=== PATIENT | female | born 1980 | race Caucasian/White ===

== ENCOUNTER 2022-08-10 13:33 | Outpatient (CLI) | payer BC, SELFPAY ==
--- NOTE | ~2022-08-10 | MM_ITS ---
EXAMINATION: MM screening beatris BI w angela HISTORY: Screening mammogram TECHNIQUE: Craniocaudal and mediolateral oblique 3-D tomosynthesis images were obtained and synthetic 2-D images were generated. Bilateral rotated lateral CC views. CAD analysis was submitted and interp reted. COMPARISON: 07/31/2007 bilateral diagnostic mammogram BREAST PARENCHYMAL COMPOSITION: The breasts are heterogeneously dense, which may obscure small masses . FINDINGS: There is no evidence of suspicious mass, calcification, or architectural distortion to sugg est malignancy in either breast. There has been no suspicious interval change. IMPRESSION: 1. No mammographic evidence of malignancy. 2. Recommend routine screening mammography in one year. BI-RADS Category 1: Negative Reviewed, dictated and finalized at location A. OS
== END 2022-08-10 13:34 | disposition home or self-care (01) ==
PROVIDERS: PCP Internal Medicine; Visit Provider Obstetrics & Gynecology
DX: Z12.31 Encounter for screening mammogram for malignant neoplasm of breast (principal)
CPT/HCPCS: 77063; 77067

== ENCOUNTER → 2023-03-05 11:03 | Outpatient (CLI) | payer BC, SELFPAY ==
--- NOTE | ~2023-03-05 | XR_ITS ---
EXAMINATION: XR chest 2V DATE: 03/05/2023 12:07 INDICATION: Acute cough TECHNIQUE: frontal and lateral views of the chest were obtained. COMPARISON: None FINDINGS: Subtle retrocardiac opacities at the medial left lung base with no focal airspace opacities but with suggestion of some bronchial wall thickening in the infrahilar region on the lateral projection. No p leural effusion or pneumothorax. Size is normal. Moderate mid thoracic spondylosis. IMPRESSION: 1. Subtle opacities with suggestion of bronchial wall thickening in the infrahilar left lower lobe wh ich could represent bronchitis or early pneumonia. Reviewed, dictated and finalized at location B. IMPRESSION: 1. Subtle opacities with suggestion of bronchial wall thickening in the infrahi lar left lower lobe which could represent bronchitis or early pneumonia.
== END ==
PROVIDERS: PCP Internal Medicine; Visit Provider Nurse Practitioner
DX: R05.1 Acute cough (principal); R91.8 Other nonspecific abnormal finding of lung field
CPT/HCPCS: 71046

== ENCOUNTER 2023-09-25 16:07 | Outpatient (CLI) | payer BC, SELFPAY ==
--- NOTE | ~2023-09-25 | MM_ITS ---
EXAMINATION: MM screening beatris BI w angela HISTORY: Screening mammogram TECHNIQUE: Craniocaudal and mediolateral oblique 3-D tomosynthesis images were obtained and synthetic 2-D images were generated. Bilateral rotated lateral CC views. CAD analysis was submitted and interp reted. COMPARISON: 08/10/2022 bilateral screening mammogram BREAST PARENCHYMAL COMPOSITION: The breasts are heterogeneously dense, which may obscure small masses . FINDINGS: There is no evidence of suspicious mass, calcification, or architectural distortion to sugg est malignancy in either breast. There has been no suspicious interval change. IMPRESSION: 1. No mammographic evidence of malignancy. 2. Recommend routine screening mammography in one year. BI-RADS Category 1: Negative Reviewed, dictated and finalized at location A. ET ASSEMBLER
== END 2023-09-25 16:08 | disposition home or self-care (01) ==
PROVIDERS: PCP Internal Medicine; Visit Provider Obstetrics & Gynecology
DX: Z12.31 Encounter for screening mammogram for malignant neoplasm of breast (principal)
CPT/HCPCS: 77063; 77067

== ENCOUNTER 2025-04-05 15:10 | Outpatient (CLI) | payer BC, SELFPAY ==
--- NOTE | ~2025-04-05 | MM_ITS ---
EXAMINATION: MM screening beatris BI w angela HISTORY: Screening mammogram TECHNIQUE: Craniocaudal and mediolateral oblique 3-D tomosynthesis images were obtained and synthetic 2-D images were generated. CAD analysis was submitted and interpreted. COMPARISON: 09/25/2023, 08/10/2022 BREAST PARENCHYMAL COMPOSITION:Dense: The breasts are extremely dense, which lowers the sensitivity o f mammography. FINDINGS: No suspicious mass, calcification, or architectural distortion are identified in either mirna ast to suggest malignancy. There has been no suspicious interval change. IMPRESSION: No mammographic evidence of malignancy. Recommend routine screening mammography in one year. BI-RADS Category 1: Negative Reviewed, dictated and finalized at location M.
--- OUTSIDE RECORDS SUMMARY | 2025-04-05 15:13 | XMS_ITS | Encounter Summary ---
Author Organization [facility] Address [facility] [place] [address] Care Team Providers Care Tool Repairer Name Role Phone Aden Ta MD Primary Care Provider [phone] Encounter Details Date Type Department Care Team (Late Contact Info) Description 01/21/2024 [employer] [facility] Patient Accounts [address] [place], [place] [id number] [facility] Provider Action Required Social History Tobacco Use Types Packs/Day Years Used Date Smoking Tobacco: Never Smokeless Tobacco: Never Alcohol Use Standard Drinks/Week Comments Never 0 (1 standard drink = 0.6 oz pur e alcohol) PHQ-2 Answer Date Recorded Patient Health Questionnaire-2 Score 0 11/26/2023 Comments No Sex and Gender Information Value Date Recorded Sex Assigned at Female 11/30/2024 10:16 AM RESIDENTIAL SOLAR SALES CONSULTANT Legal Sex Female 6:22 PM CDT Gender Identity Female 11/26/2021 5:18 AM RESIDENTIAL SOLAR SALES CONSULTANT Sexual Orientation Lesbian or Jenkins 11/26/2021 5: 18 AM RESIDENTIAL SOLAR SALES CONSULTANT 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 on file Not on file documented as of this encounter Plan of Treatment Upcoming Encounters Date Type Department Care Team (Late st Contact Info) Description 04/28/2025 8:40 AM CDT Office Visit [facility] Family & Internal Medicine [address] [phone] Aden Ta MD [address] [place] [address] 07/07/2025 1:30 PM CDT Office Visit [facility] [address] [place] [address] Radha Pedraza PA [address] [facility] [address] [place] [address] documented as of this encounter Visit Diagnoses Not on filedocumented in this encounter Additional Health Concerns Infection Onset Date Last Indicated Resolved Time Influenza - Seasonal 11/30/2024 11/30/2024 025 12:32 AM RESIDENTIAL SOLAR SALES CONSULTANT Assessment Noted Time PHQ-9 Depression Total Score: 0 11/27/19 22 11:10 AM RESIDENTIAL SOLAR SALES CONSULTANT documented as of this encounter Care Teams Tool Repairer Relationship Specialty Start Date End Date Aden Ta MD [address] [place] [address] PCP - General 08/04/15 documented as of this encounter
--- OUTSIDE RECORDS SUMMARY | 2025-04-05 15:13 | XMS_ITS | Encounter Summary ---
Author Organization [facility] Address [address] [place] [address] Care Team Providers Care Certified Professional Ergonomist Name Role Phone Aden Ta MD Primary Care Provider [phone] Encounter Details Date Type Department Care Team (Late st Contact Info) Description 11/11/2024 MyChart Message Enc [facility] Family & Internal [address] [phone] Aden Ta MD [address] [place] [address] [phone] Letter for excused work absence due to covid Social History Tobacco Use Types Packs/Day Years Used Date Smoking Tobacco: Never Smokeless Tobacco: Never Alcohol Use Standard Drinks/Week Comments Never 0 (1 standard drink = 0.6 oz pur e alcohol) PHQ-2 Answer Date Recorded Patient Health Questionnaire-2 Score 0 11/26/2023 Comments No Sex and Gender Information Value Date Recorded Sex Assigned at Female 11/30/2024 10:16 AM NODE JS DEVELOPER Legal Sex Female 6:22 PM CDT Gender Identity Female 11/26/2021 5:18 AM NODE JS DEVELOPER Sexual Orientation Lesbian or Jenkins 11/26/2021 5: 18 AM NODE JS DEVELOPER 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 on file Not on file documented as of this encounter Plan of Treatment Upcoming Encounters Date Type Department Care Team (Late st Contact Info) Description 04/28/2025 8:40 AM CDT Office Visit [facility] Internal [address] [phone] Aden Ta MD [address] [place] [address] 07/07/2025 1:30 PM CDT Office Visit [facility] [address] [place] [address] Radha Pedraza PA 3 [facility] [address] [place] [address] documented as of this encounter Visit Diagnoses Not on filedocumented in this encounter Additional Health Concerns Infection Onset Date Last Indicated Resolved Time Influenza - Seasonal 11/30/2024 11/30/2024 025 12:32 AM NODE JS DEVELOPER Assessment Noted Time PHQ-9 Depression Total Score: 0 11/27/19 22 11:10 AM NODE JS DEVELOPER documented as of this encounter Care Teams Certified Professional Ergonomist Relationship Specialty Start Date End Date Aden Ta MD [address] [place] [address] PCP - General 08/04/15 documented as of this encounter
--- OUTSIDE RECORDS SUMMARY | 2025-04-05 15:13 | XMS_ITS | Clinical Summary ---
Author Organization [facility] Address [address] [place] [address] Care Team Providers Care Relief Charge Nurse Name Role Phone Aden Ta MD Primary Care Provider [phone] Allergies Active Allergy Reactions Criticality Noted Date Comments Aspirin Nausea and Vomiting 12/10/2010 Sulfa Antibiotics Nausea and Vomiting 1 CANNOT TAKE ON EMPTY STOMACH Medications probiotic Cap capsule Take 1 capsule by mouth daily with breakfast. Active vitamin D2, ergocalciferol , (DRISDOL) 23745 UNITS capsule Take 1 capsule (50,000 Units total) by mouth once a week. 08/02/20 22 Active triamcinolone (KENALOG) 0.1 % lotionIndicati ons:Eczema of eyelid, unspecified laterality Apply topically 3 (three) times daily. 60 mL 08/15/20 22 Active Multiple Vitamins-[place] als (MULTIVITAMIN ADULT, MINERALS, OR) Active buPROPion SR (WELLBUTRIN SR) 150 MG 12 hr tabletIndicati ons:Generalize d anxiety disorder Take 1 tablet by mouth twice daily 60 tablet 2 02/26/20 25 Active metoprolol succinate ER (TOPROL-XL) 25 MG 24 hr tablet TAKE 1 TABLET BY MOUTH NIGHTLY AT BEDTIME 90 tablet 03/09/20 25 Active naltrexone (DEPADE) 50 MG tabletIndicati ons:Generalize d anxiety disorder Take 1 tablet by mouth once daily 30 tablet 03/09/20 25 Active metoprolol succinate ER (TOPROL-XL) 25 MG 24 hr tablet Take 1 tablet (25 mg total) by mouth nightly at bedtime. NEW INSTRUCTIONS 90 tablet 1 06/01/20 24 025 Discontinued naltrexone (DEPADE) 50 MG tabletIndicati ons:Generalize d anxiety disorder Take 1 tablet (50 mg total) by mouth daily. 30 tablet 01/27/20 25 025 Discontinued Active Problems Problem Noted Date Diagnosed Date SVT (supraventricular tachycardia) ([facility]) Anxiety disorder 08/13/2017 Resolved Problems Problem Noted Date Diagnosed Date Resolved Date Annual physical exam 12/02/2021 022 Heart palpitations 12/02/2021 4 Encounters Date Type Department Care Team Description 01/26/2025 8:40 AM CDT Office Visit [facility] Family & Internal Medicine [address] [phone] Aden Ta MD Follow Up; Anxiety; Vitamin D Deficiency; Eczema (Patient has a eczema spot on her LT ear that is not healing. She has been applying triamcinolone lotion. ); Obesity (Patient has been cutting the naltrexone 50mg in half daily. Patient is wondering if it would be more effective to take the full 50mg for weight loss. ) 01/26/2025 Travel from Last 3 Months Immunizations Immunization Administration Dates Next Due COVID-19 Vaccine (Generic) 10/13/2023 Fluzone 6 Months+ Quad (0.5 mL Prefilled Syringe) 08/15/2022 JoKno COVID-19 (ORIGINAL FO RMULATION, PURPLE CAP) mRNA, LNP-S, PF, 30 MCG/0.3 ML DOSE 10/24/2021,01/30/2021,01/09/2021 Tdap (Generic) 08/15/2014 Family History Medical History Relation Comments Afib Father Cancer Father Skin Cardiomyopathy Father Diabetes Father Drug Abuse Father Hypertension Father Mental Health Father COPD Maternal Grandfather CABG Maternal Grandmother x2 Heart Attack Maternal Grandmother Hyperlipidemia Maternal Grandmother Hypertension Maternal Grandmother Heart Attack Paternal Grandfather Hypertension Paternal Grandmother Pacemaker Paternal Grandmother Relation Status Comments Brother 1 (Age 29) Brother 2 Alive Father Alive Maternal Grandfather Maternal Grandmother Mother Alive Paternal Grandfather Paternal Grandmother Alive Sister 1 Alive Sister 2 Alive Social History Tobacco Use Types Packs/Day Years Used Date Smoking Tobacco: Never Smokeless Tobacco: Never Tobacco Cessation:Counseling Given: Not Answered Alcohol Use Standard Drinks/Week Comments Never 0 (1 standard drink = 0.6 oz pur e alcohol) PHQ-2 Answer Date Recorded Patient Health Questionnaire-2 Score 0 01/26/2025 Comments No Sex and Gender Information Value Date Recorded Sex Assigned at Female 11/30/2024 10:16 AM PROPERTY CONSULTANT Legal Sex Female 6:22 PM CDT Gender Identity Female 11/26/2021 5:18 AM PROPERTY CONSULTANT Sexual Orientation Lesbian or Jenkins 11/26/2021 5: 18 AM PROPERTY CONSULTANT 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 on file Not on file Last Filed Vital Signs Vital Sign Reading Time Taken Comments Blood Pressure 100/66 01/26/2025 8:43 AM CDT Pulse 69 01/26/2025 8:43 AM CDT Temperature 36.7 C (98.1 F) 01/26/2025 8:43 AM CDT Respiratory Rate 16 01/26/2025 8:43 AM CDT Oxygen Saturation 98% 01/26/2025 8:43 AM CDT Inhaled Oxygen Concentration - - Weight 89.7 kg (197 lb 12.8 oz) 01/26/2025 8:43 AM CDT Height 166.4 cm (5' 5.5) 01/26/2025 8:43 AM CDT Body Mass Index 32.42 01/26/2025 8:43 AM CDT Plan of Treatment Upcoming Encounters Date Type Department Care Team (Late st Contact Info) Description 04/28/2025 8:40 AM CDT Office Visit [facility] Family & Internal Medicine - [place] [address] [place] [address] Aden Ta MD [address] [place] [address] 07/07/2025 1:30 PM CDT Office Visit [facility], [address] [place], [place] [phone] Radha Pedraza PA [address] [facility] [address] [place], [place] [phone] Health Maintenance Due Date Last Done Comments Cervical Cancer Screening Pap Smear (Age 30 to 64) Every 3 Years 1980 Cervical Cancer Screening Pap with HPV Testing (Age 30 to 64) Every 5 Years 2010 Annual Physical 11/27/2022 11/27/2021 COVID-19 Vaccine ( season) 2025 10/13/2023, 07/20/2023, 10/24/2021, Additional history exists Postponed from 06/06/2024 (Patient Refused) Cervical Cancer Screening with HPV 07/14/2025 Postponed from 2010 (Awaiting Documentation) Hepatitis B Vaccines (1 of 3 - 19+ 3-dose series) 07/14/2025 Postponed from 1999 (Patient/Guardian Refusal) Mammogram Screening 09/25/2025 09/25/2023, DTaP, Tdap and Td Vaccines (2 - Td or Tdap) 01/26/2026 08/15/2014 Postponed from 08/15/2024 (Patient Refused) Hepatitis C 07/14/2054 Postponed from 1998 (Patient Refused) PHQ-2 (Physician [place]) Completed 01/26/2025 HPV Vaccines Aged Out No longer eligi ble based on patient's age to complete this topic Meningococcal B Vaccine Aged Out No l onger eligible based on patient's age to complete this topic Meningococcal Vaccine Aged Out No lei hernan eligible based on patient's age to complete this topic Pneumococcal Vaccine: Pediatrics (0 to 5 Years) and At-Risk Patients (6 to 49 Years) Aged Out No longer eligible based on patient's age to complete this topic RSV Immunizations Under 20 Months Aged Out No longer eligible based on patient's age to complete this topic Procedures Procedure Name Priority Date/Time Associated Diagnosis Comments MAMMOGRAM GENERIC (SCAN ORDER) 09/25/2023 from Last 3 Months or Most Recently Relevant to Health Maintenance Results * MAMMOGRAM GENERIC (09/25/2023) Anatomical Region Laterality Modality Other 09/25/2023 [facility] Scanned SCANNING Final Resu lt from Last 3 Months or Most Recently Relevant to Health Maintenance Insurance [facility] Care Teams Relief Charge Nurse Relationship Specialty Start Date End Date Aden Ta MD [address] [place] [address] PCP - General 08/04/15
--- OUTSIDE RECORDS SUMMARY | 2025-04-05 15:13 | XMS_ITS | Encounter Summary ---
Author Organization [facility] Address [address] [place] [address] Care Team Providers Care Internet Marketing Executive Name Role Phone Aden Ta MD Primary Care Provider Encounter Details Date Type Department Care Team (Latest Contact Info) Description 08/11/2018 Abstract [facility] , Roderick Nguyen MD Social History Tobacco Use Types Packs/Day Years Used Date Smoking Tobacco: Never Assessed Comments Unknown Sex and Gender Information Value Date Recorded Sex Assigned at Female 11/30/2024 10:16 AM 3RD GRADE TEACHER Legal Sex Female 6:22 PM CDT Gender Identity Female 11/26/2021 5:18 AM 3RD GRADE TEACHER Sexual Orientation Lesbian or Jenkins 11/26/2021 5: 18 AM 3RD GRADE TEACHER documented as of this encounter Plan of Treatment Upcoming Encounters Date Type Department Care Team (Late st Contact Info) Description 04/28/2025 8:40 AM CDT Office Visit [facility] Family & Internal Medicine [address] [phone] Aden Ta MD [address] [place] [address] 07/07/2025 1:30 PM CDT Office Visit [facility], [address] [place] [address] Radha Pedraza PA 3 [facility] [address] [place] [address] documented as of this encounter Visit Diagnoses Not on filedocumented in this encounter Additional Health Concerns Infection Onset Date Last Indicated Resolved Time Influenza - Seasonal 11/30/2024 11/30/2024 025 12:32 AM 3RD GRADE TEACHER documented as of this encounter Care Teams Internet Marketing Executive Relationship Specialty Start Date End Date Aden Ta MD [address] [place] [address] PCP - General 08/04/15 documented as of this encounter
--- OUTSIDE RECORDS SUMMARY | 2025-04-05 15:13 | XMS_ITS | Clinical Summary ---
Author Organization [facility] Address [address] [place] [address] Care Team Providers Care Special Procedures Tech Name Role Phone Aden Ta MD Primary Care Provider [phone] Source Comments [facility],non-owned Affiliates and Associated Physician Practices is amultiple site organization consisting of ambulatory clinics and hospital sitesin [place], [place], [place] and [place]. This disclosure is being madepursuant to the Care Everywhere program and may not contain all information available regarding this patient. Last updated 18.[facility] Allergies Active Allergy Reactions Criticality Noted Date Comments Aspirin Nausea and/or Vomiting 12/10/2010 Sulfa Drugs Nausea and/or Vomiting 02/25/2011 CANNOT TAKE ON EMPTY STOMACH Medications * Be aware that medications may not be up to date on this document. Alwaysverify current medications with the patient. spironolactone (ALDACTONE) 100 MG tablet daily. Active Ergocalciferol (VITAMIN D2 PO) Acti ve Probiotic Product (PROBIOTIC ADVANCED PO) Active Active Problems Problem Noted Date Diagnosed Date Status post lumbar discectomy 03/17/2011 Displacement of lumbar inter vertebral disc without myelopathy 12/10/2010 Family History Medical History Relation Name Comments Diabetes - Type 2 Father Hyperlipidemia Father Hypertension Father Relation Name Status Comments Father Alive Mother Alive Social History Tobacco Use Types Packs/Day Years Used Date Smoking Tobacco: Never Smokeless Tobacco: Never Alcohol Use Standard Drinks/Week Comments Yes 0 (1 standard drink = 0.6 oz pur e alcohol) RARE Comments No Sex and Gender Information Value Date Recorded Sex Assigned at Not on file Legal Sex Female 10:02 AM STATUARY PAINTER Gender Identity Not on file Sexual Orientation Not on file Last Filed Vital Signs Vital Sign Reading Time Taken Comments Blood Pressure 122/70 11/16/2018 10:21 AM STATUARY PAINTER Pulse 104 11/16/2018 10:21 AM STATUARY PAINTER Temperature 37 C (98.6 F) 11/16/2018 10:21 AM STATUARY PAINTER Respiratory Rate 16 11/16/2018 10:21 AM STATUARY PAINTER Oxygen Saturation 98% 11/16/2018 10:21 AM STATUARY PAINTER Inhaled Oxygen Concentration - - Weight 77.1 kg (170 lb) 11/16/2018 10:21 AM STATUARY PAINTER Height 167.6 cm (5' 6) 11/16/2018 10:21 AM STATUARY PAINTER Body Mass Index 27.44 11/16/2018 10:21 AM STATUARY PAINTER Plan of Treatment Health Maintenance Due Date Last Done Comments LIPID TESTING 1980 MAMMOGRAM 1980 HIV SCREENING 1995 HEPATITIS C SCREENING 09/29/1998 DTAP/TDAP/TD VACCINES (1 - Tdap) 1999 HEPATITIS B VACCINE (1 of 3 - 19+ 3-dose series) 1999 COVID-19 VACCINE (1 - 2023-2 5 season) 2024 DEPRESSION SCREENING 10/06/2024 INFLUENZA VACCINE (Season Ended) 2025 ZOSTER VACCINE (1 of 2) 2030 HIB VACCINE Aged Out No longer eligi ble based on patient's age to complete this topic HPV VACCINE Aged Out No longer eligi ble based on patient's age to complete this topic MENINGOCOCCAL (Group B) VACC INE SHARED DECISION-MAKING Aged Out No longer eligibl e based on patient's age to complete this topic MENINGOCOCCAL GROUPS A/C/Y/W VACCINE Aged Out No longer eligible b ased on patient's age to complete this topic PNEUMOCOCCAL VACCINE Aged Out No long er eligible based on patient's age to complete this topic Insurance [employer] Advance Directives * Full Code (Latest Code Status on File) Date Activated Date Inactivated Comments 02/28/2011 3:28 PM 03/01/2011 11:00 PM Care Teams Special Procedures Tech Relationship Specialty Start Date End Date dAen Ta MD PCP - General Internal Medicine 12/30/17
== END 2025-04-05 15:11 | disposition home or self-care (01) ==
LOC: ANHIMG 15:11
PROVIDERS: PCP Internal Medicine; Visit Provider Obstetrics & Gynecology
DX: Z12.31 Encounter for screening mammogram for malignant neoplasm of breast (principal)
CPT/HCPCS: 77063; 77067